=== PATIENT | male | born 1970 | race Caucasian/White ===

== ENCOUNTER 2016-10-03 19:01 | Emergency (ER) | payer BC ==
[2016-10-03 19:12] VITALS: BP 136/92
[2016-10-03] MEDS ORDERED: DIPHTH,PERTUSS(ACELL),TET VAC 0.5 ML VIAL IM ONE ×2 (19:12→19:17)
[2016-10-03] MEDS ORDERED: LIDOCAINE HCL/EPINEPHRINE 30 ML VIAL IJ ONE (20:33)
--- OUTSIDE RECORDS SUMMARY | 2016-10-03 20:38 | XMS REPORT | Continuity of Care Document ---
:1970 Author Organization [facility] ([facility]) Address [address] [place] [address] Phone [phone] Care Team Providers Name Role Phone Provider, No-Primary Care Primary Care Provider Unavailable Source Comments This disclosure is being made pursuant to the Care Everywhere program, applicable federal and state laws, and may not contain all informaitonavailable regarding this patient.[facility] ([facility]) Active Allergies and Adverse Reactions Not on File Current Medications Prescription Sig. Disp. Refills Start Date End Date Status predniSONE 20 mg tablet Take 40 mg by mouth Active daily. Difluprednate (DUREZOL) instill onto the Active 0.05 % Drop left eye 2 times daily. moxifloxacin (VIGAMOX) instill 1 Drop onto Active 0.5 % ophthalmic solution the left eye 4 times daily. Active Problems Problem Noted Date Nodular episcleritis left eye 02/11/2011 Trigger finger (acquired) 02/06/2003 Resolved Problems Problem Noted Date Resolved Date Scleritis 02/11/2011 02/11/2011 Social History Tobacco Use Types Packs/Day Years Used Date Never Assessed Plan of Care Health Maintenance Due Date Last Done Comments Hepatitis B Vaccine (1 of 3 - Primary Series) 1970 Tdap Vaccine 1982 Lipid Disorder Screening 1989 MMR Vaccine 1989 Td Vaccine 1989 Influenza Vaccine: Seasonal (#1) 02/18/2016 Results from Last 3 Months Not on file
--- NOTE | 2016-10-03 20:54 | ERNOTE ---
Medical Problem HPI - Narrative Date of Service: 10/03/16 - General Chief Complaint: Laceration Time Seen by Provider: 10/03/16 20:27 Source: patient, RN notes reviewed Exam Limitations: no limitations - Immun/Allergies/Home Medications Immunizations: IMMUNIZATION HX Immunizations Up to Date No History of Influenza Vaccine No Hx Pneumococcal Vaccination No Allergies/Adverse Reactions: Allergies No Known Drug Allergies Adverse Reaction (Verified 10/03/16 19:12) Home Medications: HOME MEDICATIONS NK [No Home Medication] 10/03/16 [Last Taken Unknown] - History of Present History Narrative: 46 y/o male ambulatory to the ED for a laceration to his left forearm. He cut himself with a pocket knife when cutting a zip-tie. He reports that the knife was new and clean. Date (Duration): 10/03/16 Time (Timing): 18:00 Review of Systems - Review of Systems Constitutional: Present: no symptoms reported EYE: Present: no symptoms reported ENT: Present: no symptoms reported Respiratory: Present: no symptoms reported Cardiology: Present: no symptoms reported Gastrointestinal/Abdominal: Present: no symptoms reported Genitourinary: Present: no symptoms reported Musculoskeletal: Absent: joint pain, joint swelling Skin: Absent: lesions, lumps, change in color Neurological: Absent: weakness, numbness, tingling Endocrine: Present: no symptoms reported Hematologic/Lymphatic: Absent: easy bruising, easy bleeding Psych: Present: no symptoms reported - Patient's Past Medical History Patient History - Medical: No pertinent hx Patient History - Cardiac/Respiratory: Hypertension Patient History - Cancer: No Hx of Cancer Patient History - Surgical Procedures: No surgical history Patient History - Other: None - Social History Living Situations: home Abuse History: No History of abuse Psych History: No pertinent hx Smoking Status: Former smoker Have you smoked in the past 12 months: No Do you dip or chew tobacco: Yes Alcohol Use: occasionally Drug Use: none - Immunizations Immunizations Up to Date: No Hx Pneumococcal Vaccination: No History of Influenza Vaccine: No Physical Exam - Physical Exam General Appearance: Present: wd/wn, alert, no apparent distress Respiratory: Present: no respiratory distress, no accessory muscle use Cardiovascular/Chest: Present: normal peripheral pulses Peripheral Pulses: N=norm/S=strong/W=weak/B=bound/A=absent: Radial (R): Strong, Radial (L): Strong Extremity Exam: Present: normal except - - left forearm laceration Neurological Exam: Present: alert, oriented, normal mood/affect, no motor/ sensory deficits Skin Exam: Present: normal color, warm/dry ED Progress - Vital Signs Patient's Vital Signs:: I have reviewed the patient's vital signs. Vital Signs: Vital Signs 10/03/16 19:06 Temperature 36.6 C Pulse Rate 98 Respiratory 18 Rate Blood Pressure 136/92 O2 Sat by Pulse 95 Oximetry - Progress/Reassessment Chief Complaint: Laceration Progress:: Improved Procedures Left Dorsal Arm Length of Repair/Wound (cm): 1 Wound's Depth/Shape: into subcutaneous, linear Wound Explored: clean, to base, in bloodless field, no foreign body Wound Intervention: irrigated w/saline Distal NVT: neuro/vasc intact, no tendon injury Wound Repaired With: sutures Suture Size/Type: 5-0, nylon Number of Sutures: 2 Layer Closure: Simple Wound Dressing: sterile dressing applied Complications: Pt candice procedure well Departure - Departure Clinical Impression: Laceration of forearm Qualifiers: Encounter type: initial encounter Laterality: left Qualified Code(s): S51.812A - Laceration without foreign body of left forearm, initial encounter Disposition: Home Follow Up Needed Condition: Good Instructions: Sutured Wound Care, [id number] Additional Instructions: Keep dressing in place and dry for 48 hours May then wash wound gently with soap and water, apply antibiotic ointment and bandage as needed Have sutures removed in 7 to 10 days Referrals: Joby Loza MD [Primary Care Provider] -
== END 2016-10-03 21:02 | disposition home or self-care (01) ==
LOC: ER 19:01
PROC: 0JQH0ZZ Repair Left Lower Arm Subcutaneous Tissue and Fascia, Open Approach (ICD-10-PCS; principal; 2016-10-03)
DX: S51.812A Laceration without foreign body of left forearm, initial encounter (principal); Z23 Encounter for immunization; Z72.0 Tobacco use; W26.0XXA Contact with knife, initial encounter; Y93.9 Activity, unspecified; Y92.9 Unspecified place or not applicable; Y99.9 Unspecified external cause status